=== PATIENT | male | born 1950 | race African-American/Black ===

== ENCOUNTER 2017-04-09 14:31 | Emergency (ER) | payer MEDICARE, OTHER ==
[~2017-04-09] VITALS: Ht 167.6 cm; Wt 98.0 kg
[~2017-04-09 14:31] MED LIST: AMLO10TA80 PO; CLOP75TA33 PO; [UNRECOGNIZED DRUG - CODE] PO
[2017-04-09] MEDS ORDERED: ACETAMINOPHEN 325MG TABLET PO STA (16:09)
[2017-04-09 16:41] LABS: HEMATOCRIT. 39.7 % (42.0-52.0); HEMOGLOBIN. 12.6 g/dL (14.0-18.0); MEAN CORPUSCULAR HEMOGLOBIN 22.6 pg (28.0-32.0); MEAN CORPUSCULAR HGB CONC 31.8 g/dL (31.0-37.0); MEAN PLATELET VOLUME 7.5 fl (7.4-10.4); PLATELET 272 x1000/uL (130-400); RED BLOOD CELL COUNT 5.59 mill/uL (4.7-6.1); RED CELL DISTRIBUTION WIDTH 17.3 % (11.6-14.6); WHITE BLOOD COUNT 6.2 x1000/uL (4.5-11.0)
[2017-04-09 16:43] LABS: DIFFERENTIAL COMMENT 1
[2017-04-09 16:45] LABS: CHLORIDE 106 mEq/L (98-107); INDEX HEMOLYSI 1 (1-3); INDEX ICTERIC 1 (1-4); INDEX LIPEMIC 1 (1-3)
[2017-04-09 16:48] LABS: CLARITY URINE CLEAR (CLEAR); COLOR URINE YELLOW (YELLOW); GLUCOSE URINE NEGATIVE (NEGATIVE); KETONES URINE TRACE (NEGATIVE); LEUKOCYTE ESTERASE URINE NEGATIVE (NEGATIVE); NITRITE URINE NEGATIVE (NEGATIVE); OCCULT BLOOD URINE NEGATIVE (NEGATIVE); PH URINE 6.5 (4.5-8.0); PROTEIN URINE NEGATIVE (NEGATIVE); SPECIFIC GRAVITY URINE 1.024 (1.005-1.030); UROBILINOGEN URINE 0.2 E.U./dL (0.2-1.0)
[2017-04-09 16:52] LABS: PROTHROMBIN TIME 10.5 sec
[2017-04-09 16:53] LABS: ALANINE AMINOTRANSFERASE 47 IU/L (13-61); ALBUMIN 3.9 g/dL (3.4-5.0); ANION GAP 10; CALCIUM 9.4 mg/dL (8.5-10.1); CARBON DIOXIDE 28 mEq/L (21-32); LIPASE 210 IU/L (73-393); UREA NITROGEN BLOOD 18 mg/dL (7-21); eGFR > 60 mL/min (>60)
[2017-04-09 17:09] LABS: PLATELET ESTIMATE NORMAL
[2017-04-09 17:10] LABS: GIANT PLATELETS FEW; HYPOCHROMASIA 1+
[2017-04-09 21:12] VITALS: BP 147/79
== END 2017-04-09 21:14 | disposition home or self-care (01) ==
LOC: ER 14:58
DX: R10.9 Unspecified abdominal pain (principal); I10 Essential (primary) hypertension; Z82.49 Family history of ischemic heart disease and other diseases of the circulatory system; Z83.3 Family history of diabetes mellitus
CPT/HCPCS: 36415; 71010; 74176; 80053; 81003; 81025; 83690; 85025; 85610; 99285

== ENCOUNTER 2017-07-30 11:14 | Emergency (ER) | payer MEDICARE, MEDICAID ==
[~2017-07-30] VITALS: Ht 165.1 cm; Wt 100.2 kg
[2017-07-30 12:05] VITALS: BP 170/99
[2017-07-30] MEDS ORDERED: SULFAMETHOXAZOLE/TRIMETHOPRIM 800/160MG TABLET PO ONE (12:15)
== END 2017-07-30 13:01 | disposition home or self-care (01) ==
LOC: ER 12:20
DX: R33.9 Retention of urine, unspecified (principal); I10 Essential (primary) hypertension; Z86.73 Personal history of transient ischemic attack (TIA), and cerebral infarction without residual deficits
CPT/HCPCS: 51702; 82962; 99284

== ENCOUNTER 2017-07-30 21:00 | Emergency (ER) | payer MEDICARE, MEDICAID ==
[~2017-07-30] VITALS: Ht 167.6 cm; Wt 100.0 kg
[2017-07-30] MEDS ORDERED: TAMSULOSIN HCL 0.4MG SR CAPSULE PO SCH (23:00)
[2017-07-30 23:59] LABS: CLARITY URINE CLEAR (CLEAR); COLOR URINE YELLOW (YELLOW); GLUCOSE URINE NEGATIVE (NEGATIVE); KETONES URINE NEGATIVE (NEGATIVE); LEUKOCYTE ESTERASE URINE TRACE (NEGATIVE); NITRITE URINE NEGATIVE (NEGATIVE); OCCULT BLOOD URINE 3+ (NEGATIVE); PROTEIN URINE 1+ (NEGATIVE); SPECIFIC GRAVITY URINE 1.014 (1.005-1.030); UROBILINOGEN URINE 0.2 E.U./dL (0.2-1.0)
[2017-07-31] MEDS ORDERED: LEVOFLOXACIN 250MG TABLET PO ONE
[2017-07-31 00:45] VITALS: BP 180/96
== END 2017-07-31 00:52 | disposition home or self-care (01) ==
LOC: ER 21:00
DX: N39.0 Urinary tract infection, site not specified (principal); N40.1 Benign prostatic hyperplasia with lower urinary tract symptoms; I10 Essential (primary) hypertension; Z86.73 Personal history of transient ischemic attack (TIA), and cerebral infarction without residual deficits; Z79.01 Long term (current) use of anticoagulants
CPT/HCPCS: 51702; 81001; 82962; 99283; 99284

== ENCOUNTER 2017-09-04 17:12 | Emergency (ER) | payer MEDICARE, MEDICAID ==
[~2017-09-04] VITALS: Ht 167.6 cm; Wt 87.0 kg
[2017-09-04] MEDS ORDERED: ACETAMINOPHEN WITH CODEINE 300/30MG TABLET PO ONE (18:15)
[2017-09-04 18:34] LABS: CLARITY URINE CLEAR (CLEAR); COLOR URINE YELLOW (YELLOW); GLUCOSE URINE NEGATIVE (NEGATIVE); KETONES URINE NEGATIVE (NEGATIVE); LEUKOCYTE ESTERASE URINE NEGATIVE (NEGATIVE); NITRITE URINE NEGATIVE (NEGATIVE); OCCULT BLOOD URINE NEGATIVE (NEGATIVE); PROTEIN URINE NEGATIVE (NEGATIVE); UROBILINOGEN URINE 0.2 E.U./dL (0.2-1.0)
[2017-09-04 21:27] VITALS: BP 155/79
== END 2017-09-04 23:30 | disposition home or self-care (01) ==
LOC: ER 17:12
DX: R33.9 Retention of urine, unspecified (principal); R10.30 Lower abdominal pain, unspecified; I10 Essential (primary) hypertension; Z86.73 Personal history of transient ischemic attack (TIA), and cerebral infarction without residual deficits; Z79.01 Long term (current) use of anticoagulants
CPT/HCPCS: 51702; 81003; 99284; A4315

== ENCOUNTER → 2017-09-14 | Outpatient (CLI) | payer MEDICARE, MEDICAID ==
[~2017-09-14] MED LIST changes: +IOHEXOL-300 100 ML BOTTLE ONE
== END | disposition home or self-care (01) ==
LOC: RAD 07:54
PROVIDERS: ATTEND Urology
DX: C61 Malignant neoplasm of prostate (principal); I51.7 Cardiomegaly; M43.28 Fusion of spine, sacral and sacrococcygeal region; R07.9 Chest pain, unspecified
CPT/HCPCS: 71020; 72193; 78306; A9503; Q9967

== ENCOUNTER 2018-10-25 08:34 | Inpatient (IN) | payer MEDICARE, MEDICAID ==
[~2018-10-25] VITALS: Ht 167.6 cm; Wt 85.3 kg
[~2018-10-25 08:34] MED LIST changes: -IOHEXOL-300 100 ML BOTTLE ONE
[2018-10-25] MEDS ORDERED: CYCLOBENZAPRINE 10MG TABLET PO ONE (09:30)
[2018-10-25] MEDS ORDERED: KETOROLAC 60MG/2ML VIAL IM ONE (09:30)
[2018-10-25 10:46] LABS: CLARITY URINE CLEAR (CLEAR); COLOR URINE YELLOW (YELLOW); KETONES URINE NEGATIVE (NEGATIVE); LEUKOCYTE ESTERASE URINE NEGATIVE (NEGATIVE); NITRITE URINE NEGATIVE (NEGATIVE); OCCULT BLOOD URINE NEGATIVE (NEGATIVE); PROTEIN URINE NEGATIVE (NEGATIVE); SPECIFIC GRAVITY URINE 1.015 (1.005-1.030)
[2018-10-25 12:56] LABS: CHLORIDE 109 mEq/L (98-107)
[2018-10-25 13:02] LABS: HEMATOCRIT. 35.3 % (42.0-52.0); HEMOGLOBIN. 11.2 g/dL (14.0-18.0); MEAN CORPUSCULAR HEMOGLOBIN 23.9 pg (28.0-32.0); MEAN CORPUSCULAR VOLUME 75.5 fL (80.0-94.0); MEAN PLATELET VOLUME 7.8 fl (7.4-10.4); PLATELET 248 x1000/uL (130-400); RED BLOOD CELL COUNT 4.68 mill/uL (4.7-6.1); RED CELL DISTRIBUTION WIDTH 15.7 % (11.6-14.6)
[2018-10-25 13:38] LABS: PLATELET ESTIMATE NORMAL
[2018-10-25 18:00] VITALS: BP 139/91
[2018-10-25] MEDS ORDERED: BICA50TA48 PO (19:02)
[2018-10-25] MEDS ORDERED: MELO-106 PO (19:02)
[2018-10-25] MEDS ORDERED: ACET (19:02)
[2018-10-25] MEDS ORDERED: TYLENOL WITH CODEINE (19:02)
[2018-10-25] MEDS ORDERED: ASPI-1159 PO (19:02)
[2018-10-25] MEDS ORDERED: TAMS0.4C31 PO (19:02)
[2018-10-25] MEDS ORDERED: DOCUSATE SODIUM 100MG CAPSULE PO PRN (19:15)
[2018-10-25] MEDS ORDERED: ONDANSETRON HCL 4MG/2ML INJ IV PRN (19:15)
[2018-10-25] MEDS ORDERED: ACETAMINOPHEN 325MG TABLET PO PRN (19:15)
[2018-10-25 20:00] VITALS: BP 150/82
[2018-10-25] MEDS: HYDROCODONE/ACETAMINOPHEN 5/325MG TABLET PO PRN (20:32)
[2018-10-25] MEDS ORDERED: PNEUMOCOCCAL 23-VAL P-SAC VAC 0.5 ML IM ONE (21:45)
[2018-10-25] MEDS ORDERED: INFLUENZA VIRUS VACCINE(AFLURIA) 0.5ML SYR IM ONE (21:45)
[2018-10-26] VITALS: BP 137/56
[2018-10-26 04:00] VITALS: BP 152/59
[2018-10-26 06:46] LABS: HEMATOCRIT. 37.5 % (42.0-52.0); HEMOGLOBIN. 11.9 g/dL (14.0-18.0); MEAN CORPUSCULAR HEMOGLOBIN 24.1 pg (28.0-32.0); MEAN CORPUSCULAR VOLUME 75.5 fL (80.0-94.0); MEAN PLATELET VOLUME 7.8 fl (7.4-10.4); PLATELET 244 x1000/uL (130-400); RED BLOOD CELL COUNT 4.96 mill/uL (4.7-6.1); RED CELL DISTRIBUTION WIDTH 16.1 % (11.6-14.6)
[2018-10-26 07:08] LABS: CHLORIDE 110 mEq/L (98-107)
[2018-10-26 08:00] VITALS: BP_SYST 181; BP_SYST 191; BP_DIAS 84
[2018-10-26] MEDS ORDERED: BICALUTAMIDE 50 MG TABLET PO SCH (09:00)
[2018-10-26] MEDS ORDERED: TAMSULOSIN HCL 0.4MG SR CAPSULE PO SCH (09:00)
[2018-10-26] MEDS ORDERED: MULTIVITAMINS,THER W-MINERALS TABLET PO SCH (09:00)
[2018-10-26] MEDS ORDERED: FOLIC ACID PO SCH (09:00)
[2018-10-26] MEDS ORDERED: MV FE OTHER MIN PO SCH (09:00)
[2018-10-26] MEDS ORDERED: MELOXICAM 7.5MG TABLET PO SCH (09:00)
[2018-10-26] MEDS ORDERED: LISINOPRIL 10MG TABLET PO SCH (09:00)
[2018-10-26] MEDS ORDERED: MEDICATION NOT ON FORMULARY EA (Meloxicam 15 MG) PO SCH (09:00)
[2018-10-26] MEDS ORDERED: ASPIRIN 81MG EC TABLET PO SCH (09:00)
[2018-10-26] MEDS ORDERED: [UNRECOGNIZED DRUG - OTHER] PO SCH (09:00)
[2018-10-26] MEDS ORDERED: AMLODIPINE 10MG TABLET PO SCH (09:00)
[2018-10-26 13:56] VITALS: BP 181/84
[2018-10-26] MEDS: HYDROCODONE/ACETAMINOPHEN 5/325MG TABLET PO PRN (13:56)
[2018-10-26 14:16] LABS: PLATELET ESTIMATE NORMAL
[2018-10-26] MEDS ORDERED: ATORVASTATIN CALCIUM 10MG TABLET PO SCH (21:00)
== END 2018-10-26 15:25 | disposition home health service (06) | DRG 309 ==
LOC: ER 09:04 → 6WST 13:42 → ENRESERV 15:34
PROVIDERS: ADMIT Hospitalist; ATTEND Hospitalist
DX: R00.1 Bradycardia, unspecified (principal); I69.351 Hemiplegia and hemiparesis following cerebral infarction affecting right dominant side; I69.354 Hemiplegia and hemiparesis following cerebral infarction affecting left non-dominant side; R10.9 Unspecified abdominal pain; G89.29 Other chronic pain; I44.0 Atrioventricular block, first degree; I45.10 Unspecified right bundle-branch block; I51.7 Cardiomegaly; I10 Essential (primary) hypertension; N40.0 Benign prostatic hyperplasia without lower urinary tract symptoms; Z79.02 Long term (current) use of antithrombotics/antiplatelets; M54.5 Low back pain
CPT/HCPCS: 36415; 71045; 83880; 84443; 84484; 90686; 90732; 93005; 93306; 96372; 99285; J1885

== ENCOUNTER 2018-12-02 17:55 | Emergency (ER) | payer MEDICARE, MEDICAID ==
[~2018-12-02] VITALS: Ht 167.6 cm; Wt 84.0 kg
[~2018-12-02 17:55] MED LIST changes: +ASPI-1159 PO; +BICA50TA48 PO; -CLOP75TA33 PO; +MELO-106 PO; +TAMS0.4C31 PO; +TYLENOL WITH CODEINE
[2018-12-02 21:44] LABS: CHLORIDE 108 mEq/L (98-107)
[2018-12-02 21:52] LABS: BASOPHILS % 0.3 % (0.0-2.0); HEMATOCRIT. 39.6 % (42.0-52.0); HEMOGLOBIN. 12.5 g/dL (14.0-18.0); LYMPHOCYTES % 43.9 % (20.0-50.0); MEAN CORPUSCULAR HEMOGLOBIN 23.7 pg (28.0-32.0); MEAN PLATELET VOLUME 7.6 fl (7.4-10.4); MONOCYTES % 9.5 % (2.0-8.0); NEUTROPHILS % 43.3 % (40.0-76.0); PLATELET 202 x1000/uL (130-400); RED BLOOD CELL COUNT 5.28 mill/uL (4.7-6.1); RED CELL DISTRIBUTION WIDTH 15.3 % (11.6-14.6)
[2018-12-03 00:21] VITALS: BP 159/108
== END 2018-12-03 00:29 | disposition home or self-care (01) ==
LOC: ER 17:55
DX: S20.212A Contusion of left front wall of thorax, initial encounter (principal); M79.10 Myalgia, unspecified site; I10 Essential (primary) hypertension; V43.52XA Car driver injured in collision with other type car in traffic accident, initial encounter; Y93.89 Activity, other specified; Y92.488 Other paved roadways as the place of occurrence of the external cause; Z86.73 Personal history of transient ischemic attack (TIA), and cerebral infarction without residual deficits; Z79.82 Long term (current) use of aspirin
CPT/HCPCS: 36415; 71045; 83880; 84484; 93005; 99284

== ENCOUNTER 2019-06-07 20:49 | Emergency (ER) | payer MEDICARE, MEDICAID, OTHER ==
[~2019-06-07] VITALS: Ht 162.6 cm; Wt 99.4 kg
[~2019-06-07 20:49] MED LIST changes: -ASPI-1159 PO; +ASPI-1393 PO
[2019-06-07] MEDS ORDERED: ASPIRIN 81MG TABLET PO ONE (23:30)
[2019-06-08 00:12] LABS: BASOPHILS % 0.2 % (0.0-2.0); EOSINOPHILS % 3.2 % (0.0-5.0); HEMATOCRIT. 39.7 % (42.0-52.0); HEMOGLOBIN. 12.8 g/dL (14.0-18.0); LYMPHOCYTES % 54.2 % (20.0-50.0); MEAN CORPUSCULAR HEMOGLOBIN 23.6 pg (28.0-32.0); MEAN CORPUSCULAR VOLUME 73.2 fL (80.0-94.0); MEAN PLATELET VOLUME 7.7 fl (7.4-10.4); MONOCYTES % 13.2 % (2.0-8.0); NEUTROPHILS % 29.2 % (40.0-76.0); PLATELET 220 x1000/uL (130-400); RED BLOOD CELL COUNT 5.42 mill/uL (4.7-6.1)
[2019-06-08 00:16] LABS: CHLORIDE 109 mEq/L (98-107)
[2019-06-08 00:20] LABS: ETHANOL BLOOD < 10 mg/dL
[2019-06-08 05:19] VITALS: BP 139/83
== END 2019-06-08 05:21 | disposition home or self-care (01) ==
LOC: ER 20:49 → CANBEDREQ 06-08 06:44
DX: R53.1 Weakness (principal); I10 Essential (primary) hypertension; I69.359 Hemiplegia and hemiparesis following cerebral infarction affecting unspecified side; Z79.82 Long term (current) use of aspirin
CPT/HCPCS: 36415; 71045; 80320; 83880; 84484; 99284; G0480

== ENCOUNTER 2019-07-08 21:27 | Inpatient (IN) | payer MEDICARE, MEDICAID ==
[~2019-07-08] VITALS: Ht 165.1 cm; Wt 87.1 kg
[2019-07-08 23:24] LABS: HEMATOCRIT. 38.1 % (42.0-52.0); HEMOGLOBIN. 12.3 g/dL (14.0-18.0); MEAN CORPUSCULAR HEMOGLOBIN 23.2 pg (28.0-32.0); MEAN CORPUSCULAR VOLUME 72.3 fL (80.0-94.0); MEAN PLATELET VOLUME 7.4 fl (7.4-10.4); PLATELET 210 x1000/uL (130-400); RED BLOOD CELL COUNT 5.27 mill/uL (4.7-6.1)
[2019-07-08 23:26] LABS: CHLORIDE 107 mEq/L (98-107)
[2019-07-09 02:19] LABS: ATYPICAL LYMPHOCYTES 2; PLATELET ESTIMATE NORMAL
[2019-07-09 08:00] VITALS: BP 167/90
[2019-07-09] MEDS ORDERED: IPRATROPIUM/ALBUTEROL 0.5-3(2.5)MG/3ML NEB INH PRN (08:30)
[2019-07-09] MEDS ORDERED: HYDROCODONE/ACETAMINOPHEN 10/325MG TABLET PO PRN (08:30)
[2019-07-09] MEDS ORDERED: DOCUSATE SODIUM 100MG CAPSULE PO PRN (08:30)
[2019-07-09] MEDS ORDERED: CLONIDINE 0.1MG TABLET PO PRN (08:30)
[2019-07-09] MEDS ORDERED: MORPHINE SULFATE 2 MG/ML CPJ (NOT FOR IM USE) IV PRN (08:30)
[2019-07-09] MEDS ORDERED: ACETAMINOPHEN 325MG TABLET PO PRN (08:30)
[2019-07-09] MEDS ORDERED: DIPHENHYDRAMINE 50MG/ML VIAL IV PRN (08:30)
[2019-07-09] MEDS ORDERED: MAGNESIUM/ALUMINUM HYDROXIDE/SIMETHICONE 30ML UDC PO PRN (08:30)
[2019-07-09] MEDS ORDERED: GUAIFENESIN 200MG/10ML SUGAR FREE UDC PO PRN (08:30)
[2019-07-09] MEDS ORDERED: ONDANSETRON HCL 4MG/2ML INJ IV PRN (08:30)
[2019-07-09] MEDS ORDERED: NA PHOS,M-B/NA PHOS,DI-BA ENEMA 118ML PR PRN (08:30)
[2019-07-09] MEDS ORDERED: HYDRALAZINE 20MG/ML VIAL IV PRN (08:30)
[2019-07-09] MEDS ORDERED: LORAZEPAM 2MG/ML CPJ IV PRN (08:30)
[2019-07-09] MEDS ORDERED: REGADENOSON 0.4 MG/5 ML IV ONE (10:15)
[2019-07-09 11:13] VITALS: BP 167/90
[2019-07-09] MEDS: ASPIRIN 81MG EC TABLET PO SCH (11:29)
[2019-07-09] MEDS: CLOPIDOGREL 75MG TABLET PO SCH (11:30)
[2019-07-09] MEDS: AMLODIPINE 5MG TABLET PO SCH ×2 (11:30→21:40)
[2019-07-09] MEDS: ENOXAPARIN 40MG/0.4ML SYR SUBCUT SCH (11:31)
[2019-07-09 12:07] VITALS: BP 168/107
[2019-07-09] MEDS ORDERED: CLON0.1T MT (12:43)
[2019-07-09] MEDS ORDERED: CYCL10TA7 MT (12:43)
[2019-07-09] MEDS ORDERED: ATOR10TA69 MT (12:43)
[2019-07-09] MEDS: SODIUM CHLORIDE 0.9% INJ 3ML FLUSH IVF SCH ×2 (13:45→21:42)
[2019-07-09 16:00] VITALS: BP 121/67
[2019-07-09 16:34] LABS: CREATINE KINASE 93 IU/L (39-308)
[2019-07-09 16:36] LABS: CREATINE KINASE MB FRACTION < 1.0 ng/mL (0.5-3.6)
[2019-07-09 20:00] VITALS: BP 149/89
[2019-07-10] VITALS: BP 156/89
[2019-07-10 00:29] LABS: CREATINE KINASE 91 IU/L (39-308)
[2019-07-10 00:30] LABS: CREATINE KINASE MB FRACTION 1.2 ng/mL (0.5-3.6)
[2019-07-10 04:00] VITALS: BP 134/66
[2019-07-10] MEDS: SODIUM CHLORIDE 0.9% INJ 3ML FLUSH IVF SCH (05:54)
[2019-07-10 07:19] LABS: HEMATOCRIT. 35.9 % (42.0-52.0); HEMOGLOBIN. 11.8 g/dL (14.0-18.0); MEAN CORPUSCULAR HEMOGLOBIN 23.7 pg (28.0-32.0); MEAN CORPUSCULAR VOLUME 72.2 fL (80.0-94.0); MEAN PLATELET VOLUME 7.7 fl (7.4-10.4); PLATELET 217 x1000/uL (130-400); RED BLOOD CELL COUNT 4.97 mill/uL (4.7-6.1)
[2019-07-10 07:27] LABS: CHLORIDE 106 mEq/L (98-107)
[2019-07-10 07:35] LABS: LDL CHOLESTEROL 78 mg/dL (5-100)
[2019-07-10 07:37] LABS: HDL CHOLESTEROL 67 mg/dL (40-59); T4 FREE 0.92 ng/dL (0.76-1.46)
[2019-07-10 08:00] VITALS: BP 139/68
[2019-07-10] MEDS: ASPIRIN 81MG EC TABLET PO SCH (08:50)
[2019-07-10] MEDS: CLOPIDOGREL 75MG TABLET PO SCH (08:50)
[2019-07-10] MEDS: ENOXAPARIN 40MG/0.4ML SYR SUBCUT SCH (08:50)
[2019-07-10] MEDS: AMLODIPINE 5MG TABLET PO SCH (08:51)
[2019-07-10] MEDS ORDERED: REGADENOSON 0.4 MG/5 ML IV ONE (09:59)
[2019-07-10 11:11] LABS: PLATELET ESTIMATE NORMAL
[2019-07-10 12:00] VITALS: BP 128/68
[2019-07-10 12:40] LABS: CLARITY URINE CLEAR (CLEAR); COLOR URINE YELLOW (YELLOW); KETONES URINE NEGATIVE (NEGATIVE); LEUKOCYTE ESTERASE URINE NEGATIVE (NEGATIVE); NITRITE URINE NEGATIVE (NEGATIVE); OCCULT BLOOD URINE NEGATIVE (NEGATIVE); PROTEIN URINE TRACE (NEGATIVE); UROBILINOGEN URINE 0.2 E.U./dL (0.2-1.0)
[2019-07-10 12:55] LABS: *AMPHETAMINES SCREEN URINE NEGATIVE (NEGATIVE); *BARBITURATES SCREEN URINE NEGATIVE (NEGATIVE); CANNABINOID URINE SCREEN NEGATIVE (NEGATIVE); METHADONE URINE SCREEN NEGATIVE (NEGATIVE); OPIATES URINE SCREEN NEGATIVE (NEGATIVE); PHENCYCLIDINE URINE SCREEN NEGATIVE (NEGATIVE)
[2019-07-10 12:56] LABS: *BENZODIAZEPINES SCREEN URINE NEGATIVE (NEGATIVE); *COCAINE SCREEN URINE NEGATIVE (NEGATIVE)
[2019-07-10 14:48] VITALS: BP 128/68
[2019-07-11] MEDS ORDERED: ENOXAPARIN 30MG/0.3ML SYR SUBCUT SCH (09:00)
== END 2019-07-10 15:20 | disposition home or self-care (01) | DRG 205 ==
LOC: ER 21:42 → EDBEDREQ 07-09 00:09 → 8WST 07-09 00:30 → EDBEDREQ 07-09 00:51 → EDBEDREQTM 07-09 00:51 → EDBEDREQDT 07-09 00:51 → ENRESERV 07-09 07:33
PROVIDERS: ADMIT Internal Medicine; ATTEND Internal Medicine
DX: M94.0 Chondrocostal junction syndrome [Tietze] (principal); J96.00 Acute respiratory failure, unspecified whether with hypoxia or hypercapnia; I69.354 Hemiplegia and hemiparesis following cerebral infarction affecting left non-dominant side; R07.9 Chest pain, unspecified; R60.0 Localized edema; E78.5 Hyperlipidemia, unspecified; I44.0 Atrioventricular block, first degree; I11.9 Hypertensive heart disease without heart failure; I45.10 Unspecified right bundle-branch block; N40.0 Benign prostatic hyperplasia without lower urinary tract symptoms; Z79.82 Long term (current) use of aspirin
CPT/HCPCS: 36415; 71045; 78452; 80061; 80305; 81003; 82550; 82553; 83735; 83880; 84439; 84443; 84484; 93005; 93017; 93306; 93970; 99285; A9500; J1650; J2785

== ENCOUNTER 2019-09-20 01:03 | Emergency (ER) | payer MEDICARE, MEDICAID ==
[~2019-09-20] VITALS: Ht 165.1 cm; Wt 98.0 kg
[~2019-09-20 01:03] MED LIST changes: +ATOR10TA69 MT; +CLON0.1T MT; +CYCL10TA7 MT; -MELO-106 PO; -TYLENOL WITH CODEINE
[2019-09-20 03:14] LABS: CLARITY URINE CLEAR (CLEAR); COLOR URINE YELLOW (YELLOW); KETONES URINE NEGATIVE (NEGATIVE); LEUKOCYTE ESTERASE URINE NEGATIVE (NEGATIVE); NITRITE URINE NEGATIVE (NEGATIVE); OCCULT BLOOD URINE NEGATIVE (NEGATIVE); PROTEIN URINE NEGATIVE (NEGATIVE); SPECIFIC GRAVITY URINE 1.016 (1.005-1.030)
[2019-09-20 03:32] LABS: CHLORIDE 106 mEq/L (98-107)
[2019-09-20 03:34] LABS: INR 0.9; PROTHROMBIN TIME 9.4 sec (9.6-11.0)
[2019-09-20 03:36] LABS: BASOPHILS % 0.6 % (0.0-2.0); EOSINOPHILS % 3.8 % (0.0-5.0); HEMATOCRIT. 38.7 % (42.0-52.0); HEMOGLOBIN. 12.4 g/dL (14.0-18.0); LYMPHOCYTES % 52.6 % (20.0-50.0); MEAN CORPUSCULAR HEMOGLOBIN 23.7 pg (28.0-32.0); MEAN CORPUSCULAR VOLUME 74.2 fL (80.0-94.0); MEAN PLATELET VOLUME 7.8 fl (7.4-10.4); PLATELET 257 x1000/uL (130-400); RED BLOOD CELL COUNT 5.21 mill/uL (4.7-6.1)
[2019-09-20 04:59] VITALS: BP 146/96
== END 2019-09-20 04:59 | disposition home or self-care (01) ==
LOC: ER 01:03
DX: K64.9 Unspecified hemorrhoids (principal); I10 Essential (primary) hypertension; Z86.73 Personal history of transient ischemic attack (TIA), and cerebral infarction without residual deficits; Z79.82 Long term (current) use of aspirin
CPT/HCPCS: 36415; 81003; 82270; 99283

== ENCOUNTER 2021-01-16 16:12 | Inpatient (IN) | payer OTHER, MEDICAID ==
[~2021-01-16] VITALS: Ht 165.1 cm; Wt 110.7 kg
[~2021-01-16 16:12] MED LIST changes: -ASPI-1393 PO; +ASPI-1497 PO
[2021-01-16] MEDS ORDERED: ASPIRIN 81MG TABLET PO ONE (17:00)
[2021-01-16] MEDS ORDERED: HYDRALAZINE 20MG/ML VIAL IV ONE (17:00)
[2021-01-16 17:10] LABS: HEMATOCRIT. 40.7 % (42.0-52.0); HEMOGLOBIN. 12.7 g/dL (14.0-18.0); MEAN CORPUSCULAR VOLUME 70.3 fL (80.0-94.0); MEAN PLATELET VOLUME 9.1 fl (7.4-10.4); PLATELET 235 x1000/uL (130-400); RED BLOOD CELL COUNT 5.79 mill/uL (4.7-6.1)
[2021-01-16 17:16] LABS: CHLORIDE 108 mEq/L (98-107)
[2021-01-16 17:20] LABS: D-DIMER 0.97 mg/L FEU (<0.50); PARTIAL THROMBOPLASTIN TIME 25.6 sec (23.4-31.0); PROTHROMBIN TIME 10.3 sec (9.6-11.0)
[2021-01-16 17:34] LABS: PLATELET ESTIMATE NORMAL
[2021-01-16] MEDS ORDERED: CEFTRIAXONE 1 G PREMIX 50 ML IV ONE (18:15)
[2021-01-16] MEDS ORDERED: ENOXAPARIN 100MG/ML SYR SUBCUT ONE (18:15)
[2021-01-16] MEDS ORDERED: DEXAMETHASONE 10 MG/ML VIAL IV ONE (18:15)
[2021-01-16] MEDS ORDERED: AZITHROMYCIN 500 MG in DEXT 5% WATER 250 ML IV ONE (18:15)
[2021-01-16 18:31] LABS: CLARITY URINE CLEAR (CLEAR); COLOR URINE YELLOW (YELLOW); KETONES URINE NEGATIVE (NEGATIVE); LEUKOCYTE ESTERASE URINE NEGATIVE (NEGATIVE); NITRITE URINE NEGATIVE (NEGATIVE); OCCULT BLOOD URINE NEGATIVE (NEGATIVE); PH URINE 7.5 (4.5-8.0); PROTEIN URINE NEGATIVE (NEGATIVE); SPECIFIC GRAVITY URINE 1.017 (1.005-1.030); UROBILINOGEN URINE 0.2 E.U./dL (0.2-1.0)
[2021-01-17] MEDS ORDERED: CLONIDINE 0.1MG TABLET PO PRN (00:15)
[2021-01-17] MEDS ORDERED: HYDROCODONE/ACETAMINOPHEN 5/325MG TABLET PO PRN (00:15)
[2021-01-17 01:17] VITALS: BP 195/99
[2021-01-17] MEDS: CLONIDINE 0.1MG TABLET PO PRN ×2 (01:47→08:12)
[2021-01-17 04:00] VITALS: BP 103/79
[2021-01-17] MEDS: HYDRALAZINE HCL 50MG TABLET PO SCH ×2 (05:40→13:12)
[2021-01-17 08:00] VITALS: BP 179/103
[2021-01-17] MEDS: BICALUTAMIDE 50 MG TABLET PO SCH ×2 (08:18→09:00)
[2021-01-17] MEDS ORDERED: METOPROLOL TARTRATE 50MG TABLET PO SCH (09:00)
[2021-01-17] MEDS ORDERED: ASPIRIN 81MG TABLET PO SCH (09:00)
[2021-01-17] MEDS ORDERED: AMLODIPINE 10MG TABLET PO SCH (09:00)
[2021-01-17] MEDS ORDERED: IPRATROPIUM/ALBUTEROL 0.5-3(2.5)MG/3ML NEB HHN SCH (12:45)
[2021-01-17] MEDS ORDERED: IPRATROPIUM/ALBUTEROL 0.5-3(2.5)MG/3ML NEB HHN PRN (12:45)
[2021-01-17] MEDS ORDERED: AZITHROMYCIN 250 MG TABLET PO SCH (13:00)
[2021-01-17 14:00] VITALS: BP 169/78
[2021-01-17] MEDS ORDERED: LOSARTAN POTASSIUM 100 MG TABLET PO SCH (15:15)
[2021-01-17] MEDS ORDERED: FUROSEMIDE 40MG/4ML VIAL IVP SCH (16:30)
[2021-01-17] MEDS ORDERED: CEFTRIAXONE 1,000 MG in DEXTROSE 5% WATER 50 ML IV SCH (18:00)
[2021-01-17 18:13] VITALS: BP 147/74
[2021-01-17] MEDS ORDERED: CARVEDILOL 12.5MG TABLET PO SCH (21:00)
[2021-01-17] MEDS ORDERED: ATORVASTATIN CALCIUM 40MG TABLET PO SCH (21:00)
== END 2021-01-17 19:21 | disposition short-term general hospital (02) | DRG 139 ==
LOC: ER 16:12 → 7WST 20:10 → EDBEDREQ 20:13 → ENRESERV 22:23 → 8WST 01-17 09:51
PROVIDERS: ADMIT Internal Medicine; ATTEND Internal Medicine
DX: J18.9 Pneumonia, unspecified organism (principal); I69.354 Hemiplegia and hemiparesis following cerebral infarction affecting left non-dominant side; D64.9 Anemia, unspecified; E87.8 Other disorders of electrolyte and fluid balance, not elsewhere classified; I16.0 Hypertensive urgency; E66.9 Obesity, unspecified; Z20.822 Contact with and (suspected) exposure to COVID-19; I45.10 Unspecified right bundle-branch block; I11.0 Hypertensive heart disease with heart failure; I50.31 Acute diastolic (congestive) heart failure; Z79.899 Other long term (current) drug therapy; Z79.82 Long term (current) use of aspirin; Z71.3 Dietary counseling and surveillance; Z68.41 Body mass index [BMI] 40.0-44.9, adult
CPT/HCPCS: 36415; 71045; 71275; 76770; 80053; 81003; 83605; 83880; 84484; 85025; 85379; 93005; 93970; 94640; 99285; J0360; J0456; J0696; J1100; J1650; J1940; J7060; U0003

== ENCOUNTER 2021-05-08 13:45 | Emergency (ER) | payer MEDICARE, OTHER ==
[~2021-05-08] VITALS: Ht 180.3 cm; Wt 90.0 kg
[2021-05-08 14:55] LABS: BASOPHILS % 0.6 % (0.0-2.0); EOSINOPHILS % 2.3 % (0.0-5.0); HEMATOCRIT. 38.4 % (42.0-52.0); HEMOGLOBIN. 12.6 g/dL (14.0-18.0); MEAN CORPUSCULAR HEMOGLOBIN 23.2 pg (28.0-32.0); MEAN CORPUSCULAR VOLUME 70.8 fL (80.0-94.0); MEAN PLATELET VOLUME 8.6 fl (7.4-10.4); MONOCYTES % 8.2 % (2.0-8.0); NEUTROPHILS % 63.9 % (40.0-76.0); PLATELET 208 x1000/uL (130-400); RED BLOOD CELL COUNT 5.42 mill/uL (4.7-6.1); RED CELL DISTRIBUTION WIDTH 16.8 % (11.6-14.6)
[2021-05-08 15:03] LABS: CHLORIDE 107 mEq/L (98-107)
[2021-05-08 15:10] LABS: BG BASE EXCESS -1.4 mmol/L (-2.0-2.0); BG CARBOXYHEMOGLOBIN 0.2 % (0.5-1.5); BG DEOXYHEMOGLOBIN 3.2 % (0.0-5.0); BG FRACTION INSPIRED OXYGEN 21; BG HCO3 ACT 23.1 mmol/L (22.0-26.0); BG METHEMOGLOBIN 0.2 % (0.0-1.5); BG OXYGEN SATURATION 96.8 % (92.0-98.5); BG OXYHEMOGLOBIN 96.4 % (94.0-97.0); BG PCO2 38.2 mmHg (35.0-45.0); BG PO2 86.9 mmHg (75.0-100.0); BG SAMPLE SITE RIGHT RADIAL; BG TOTAL HEMOGLOBIN 13.2 g/dL (12.0-18.0); BG VENT MODE ROOM AIR
[2021-05-08 15:11] LABS: PROTHROMBIN TIME 10.3 sec (9.6-11.0)
[2021-05-08 16:14] LABS: CLARITY URINE CLEAR (CLEAR); COLOR URINE YELLOW (YELLOW); KETONES URINE TRACE (NEGATIVE); LEUKOCYTE ESTERASE URINE NEGATIVE (NEGATIVE); NITRITE URINE NEGATIVE (NEGATIVE); OCCULT BLOOD URINE TRACE (NEGATIVE); PH URINE 5.5 (4.5-8.0); PROTEIN URINE 1+ (NEGATIVE); SPECIFIC GRAVITY URINE 1.023 (1.005-1.030); UROBILINOGEN URINE 0.2 E.U./dL (0.2-1.0)
[2021-05-08] MEDS ORDERED: ONDA4TAB5 MT (18:34)
[2021-05-08 18:50] VITALS: BP 135/65
== END 2021-05-08 18:51 | disposition home or self-care (01) ==
LOC: ER 13:45
DX: R11.10 Vomiting, unspecified (principal); E11.9 Type 2 diabetes mellitus without complications; I10 Essential (primary) hypertension; Z79.82 Long term (current) use of aspirin; Z85.46 Personal history of malignant neoplasm of prostate; Z86.73 Personal history of transient ischemic attack (TIA), and cerebral infarction without residual deficits
CPT/HCPCS: 36415; 36600; 71045; 80053; 81003; 82375; 82805; 85025; 93005; 99283

== ENCOUNTER 2022-05-03 09:06 | Emergency (ER) | payer MEDICARE, OTHER ==
[~2022-05-03] VITALS: Ht 165.1 cm; Wt 93.0 kg
[~2022-05-03 09:06] MED LIST changes: +CYCL10TA21 MT; -CYCL10TA7 MT; +IBUP-2028 MT; +LIDO1ADH23 TP; +METH-653 MT; +ONDA4TAB5 MT
[2022-05-03 09:13] VITALS: BP 146/83
[2022-05-03 10:06] LABS: BASOPHILS % 0.5 % (0.0-2.0); EOSINOPHILS % 2.4 % (0.0-5.0); HEMATOCRIT. 41.4 % (42.0-52.0); HEMOGLOBIN. 12.9 g/dL (14.0-18.0); MEAN CORPUSCULAR HEMOGLOBIN 22.5 pg (28.0-32.0); MEAN CORPUSCULAR VOLUME 72.4 fL (80.0-94.0); MEAN PLATELET VOLUME 7.6 fl (7.4-10.4); MONOCYTES % 7.9 % (2.0-8.0); NEUTROPHILS % 58.2 % (40.0-76.0); PLATELET 235 x1000/uL (130-400); RED BLOOD CELL COUNT 5.71 mill/uL (4.7-6.1)
[2022-05-03 10:17] LABS: CHLORIDE 110 mEq/L (98-107)
[2022-05-03 10:30] LABS: CLARITY URINE CLEAR (CLEAR); COLOR URINE YELLOW (YELLOW); KETONES URINE TRACE (NEGATIVE); LEUKOCYTE ESTERASE URINE NEGATIVE (NEGATIVE); NITRITE URINE NEGATIVE (NEGATIVE); OCCULT BLOOD URINE NEGATIVE (NEGATIVE); PROTEIN URINE NEGATIVE (NEGATIVE); SPECIFIC GRAVITY URINE 1.017 (1.005-1.030)
[2022-05-03] MEDS ORDERED: PYR200 MT (10:48)
[2022-05-03] MEDS ORDERED: NITR-87 MT (10:48)
== END 2022-05-03 11:00 | disposition home or self-care (01) ==
LOC: ER 09:33
DX: N39.0 Urinary tract infection, site not specified (principal); I10 Essential (primary) hypertension; Z86.73 Personal history of transient ischemic attack (TIA), and cerebral infarction without residual deficits; Z79.899 Other long term (current) drug therapy
CPT/HCPCS: 36415; 80053; 81003; 85025; 99283

== ENCOUNTER 2022-08-27 16:25 | Emergency (ER) | payer OTHER ==
[~2022-08-27] VITALS: Ht 170.2 cm; Wt 92.0 kg
[~2022-08-27 16:25] MED LIST changes: +FINA5TAB3 MT; +NITR-87 MT; +PYR200 MT
[2022-08-27 21:00] VITALS: BP 133/78
== END 2022-08-27 21:05 | disposition home or self-care (01) ==
LOC: ER 16:25
DX: S09.8XXA Other specified injuries of head, initial encounter (principal); I10 Essential (primary) hypertension; W01.0XXA Fall on same level from slipping, tripping and stumbling without subsequent striking against object, initial encounter; Y93.9 Activity, unspecified; Y92.9 Unspecified place or not applicable; Z86.73 Personal history of transient ischemic attack (TIA), and cerebral infarction without residual deficits; Z79.82 Long term (current) use of aspirin
CPT/HCPCS: 99281

== ENCOUNTER 2023-03-24 10:17 | Emergency (ER) | payer OTHER, MEDICAID ==
[~2023-03-24] VITALS: Ht 170.2 cm; Wt 90.0 kg
[2023-03-24 10:36] VITALS: BP 122/83
[2023-03-24] MEDS ORDERED: KETO15CR2 TP (14:24)
[2023-03-24] MEDS ORDERED: FURO-152 MT (14:25)
== END 2023-03-24 14:41 | disposition home or self-care (01) ==
LOC: ER 10:17
DX: R60.0 Localized edema (principal); I10 Essential (primary) hypertension; Z79.82 Long term (current) use of aspirin; Z86.73 Personal history of transient ischemic attack (TIA), and cerebral infarction without residual deficits
CPT/HCPCS: 93005; 93971; 99284

== ENCOUNTER 2023-07-25 10:12 | Emergency (ER) | payer OTHER, MEDICAID ==
[~2023-07-25] VITALS: Ht 165.1 cm; Wt 100.0 kg
[~2023-07-25 10:12] MED LIST changes: -CLON0.1T MT; +FURO-152 MT; -IBUP-2028 MT; +KETO15CR2 TP; +METF-414 MT; -METH-653 MT; -NITR-87 MT; -PYR200 MT
[2023-07-25 10:28] VITALS: O2SAT 97
[2023-07-25 15:55] VITALS: BP 135/86; PULSE 72; RESP 19; TEMP 97.9
== END 2023-07-25 15:57 | disposition home or self-care (01) ==
LOC: ER 10:12
DX: Z46.6 Encounter for fitting and adjustment of urinary device (principal); I10 Essential (primary) hypertension; Z79.899 Other long term (current) drug therapy; Z86.73 Personal history of transient ischemic attack (TIA), and cerebral infarction without residual deficits
CPT/HCPCS: 99281

== ENCOUNTER 2024-06-26 18:12 | Emergency (ER) | payer MEDICARE, MEDICAID ==
[~2024-06-26] VITALS: Ht 175.3 cm; Wt 101.0 kg
[~2024-06-26 18:12] MED LIST changes: +FINA-37 MT; -FINA5TAB3 MT
[2024-06-26 18:18] VITALS: BP 150/96; TEMP 98; O2SAT 96
[2024-06-26 18:34] VITALS: PULSE 100; RESP 18
[2024-06-26 19:01] LABS: HEMATOCRIT 40.4 % (42.0-52.0); HEMOGLOBIN 12.8 g/dL (14.0-18.0); MEAN CORPUSCULAR HEMOGLOBIN 23.3 pg (28.0-32.0); MEAN CORPUSCULAR HGB CONC 31.7 g/dL (31.0-37.0); MEAN CORPUSCULAR VOLUME 73.5 fL (80.0-94.0); PLATELET 232 x1000/uL (130-400); RED BLOOD CELL COUNT 5.49 mill/uL (4.7-6.1); RED CELL DISTRIBUTION WIDTH 15.7 % (11.6-14.6); WHITE BLOOD COUNT 5.9 x1000/uL (4.5-11.0)
[2024-06-26 19:11] LABS: CHLORIDE 103 mEq/L (98-107); POTASSIUM 3.3 mEq/L (3.5-5.1); SODIUM 139 mEq/L (136-145)
[2024-06-26 19:12] LABS: CALCIUM 10.4 mg/dL (8.7-10.4); CARBON DIOXIDE 27 mEq/L (21-32)
[2024-06-26 19:17] LABS: CREATININE 1.3 mg/dL (0.6-1.3); GLUCOSE 191 mg/dL (70-105); UREA NITROGEN BLOOD 19 mg/dL (9-23)
[2024-06-26 19:21] LABS: TROPONIN I HIGH SENSITIVITY 12 ng/L (3.0-53)
[2024-06-26] MEDS ORDERED: ASPIRIN 81MG TABLET PO ONE (20:45)
== END 2024-06-26 21:35 | disposition home or self-care (01) ==
LOC: ER 18:12
DX: R07.89 Other chest pain (principal); I10 Essential (primary) hypertension; Z86.73 Personal history of transient ischemic attack (TIA), and cerebral infarction without residual deficits; Z79.899 Other long term (current) drug therapy
CPT/HCPCS: 36415; 71045; 80048; 83880; 84484; 85027; 93005; 99285